=== PATIENT | male | born 1985 | race Caucasian/White ===

== ENCOUNTER 2022-01-22 13:35 | Emergency (ER) | payer BC, SELFPAY ==
[2022-01-22 13:56] VITALS: BP 127/81; PULSE 98; TEMP 36.3; O2SAT 94; BMI 24.1
--- NOTE | 2022-01-22 14:25 | ED_ITS ---
HPI - General Adult General Date Seen: 01/22/22 Chief complaint: Abdominal Pain Stated complaint: Possible Bowel Blockage Time Seen by Provider: 01/22/22 13:36 Source: patient and family History of Present Illness HPI narrative: Patient is a 36-year-old male here for evaluation of constipation. His provides much of the history as the patient seems very embarrassed by the whole thing. She says that he has not had a bowel movement for several weeks aside from 1 a week ago. He says that he used an enema on Sunday night and then had al bowel movement Sunday morning, 1 week ago. This was runny in consistency but not bloody He has not had anything since then. His says that he seemed very uncomfortable over the past day, he seemed shaky and has had a lot of abdominal cramping. That is why she wanted him to be seen today. He says that he does not feel terrible right now, but he says that he knows it is going to get bad when he tries to go to the bathroom. He had problems like this a couple of months ago, but it only lasted a week and then seemed to get better. Over the past few days, he has been using MiraLax and laxatives, but has not had any result. He otherwise has not been using MiraLax. He did have some bright red blood per rectum couple of months ago when he finally was able to go. Stools had been hard and difficult to pass at that time. He has not had any vomiting or fevers. He has a new job, he does not have easy access to bathrooms and is eating a lot more fast food. He thinks these are contributing to his difficulties. His weight has been stable. He is not otherwise noted any black or bloody stools. He notes that it is sometimes harder to maintain his urine stream than usual, but denies any dysuria, frequency, urgency. Related Data Home Medications Medication Instructions Recorded Confirmed clonidine HCl 0.1 mg tablet mg 01/22/22 lamotrigine 200 mg tablet mg 01/22/22 lithium carbonate 300 mg capsule mg 01/22/22 quetiapine 100 mg tablet mg 01/22/22 Allergies Allergy/AdvReac Type Severity Reaction Status Date / Time No Known Drug Allergies Allergy Verified 01/22/22 14:00 Review of Systems Status of ROS: Reports: 10 or more systems reviewed and unremarkable except as noted in History and below [facility] Social History Smoking Status: Current every day smoker What tobacco products do you use: cigarettes Do you use any of these nicotine containing products: None Second hand tobacco smoke exposure: No How often do you have a drink containing alcohol: 4 or more times a week How many standard drinks containing alcohol do you have on a typical day: 3 or 4 How often do you have six or more drinks on one occasion: Weekly AUDIT-C Alcohol total score: 8 Non-prescribed substance use: denies use Exam Narrative: Exam Narrative: Vital signs as noted above. In general, an alert, nontoxic male. Head: Normocephalic, atraumatic. Eyes: Pupils are equal reactive. Extraocular movements are full. Conjunctivae are normal. ENT: Mucous membranes are moist. Throat is normal. Neck: Supple without lymphadenopathy. Heart: Regular rate and rhythm. No murmur or rub. Lungs: Clear bilaterally. No increased work of breathing, crackles or wheezes. Abdomen: Soft and nondistended. Mild diffuse tenderness without rebound guarding or rigidity, slightly greater left than right. Extremities: Well perfused. No edema. No calf tenderness. Pulses intact. Neurologic: Patient is alert and oriented to person and place. Speech is fluent. Face is symmetric. Moves all extremities equally. Affect: Somewhat flat, did not look up during our conversation. Seems embarrassed. Skin: Warm and dry. Well perfused. Const: Vital Signs, click to edit/add: Vital Signs - 24 hr 01/22/22 13:56 Temperature 97.4 F L Pulse Rate [Pulse Oximeter] 98 Blood Pressure [Le ft Upper Arm] 127/81 Pulse Oximetry 94 Documenting provider has reviewed patient's vital signs: yes Course Course Hospital Course: Initially patient did not want to be evaluated here, did not want any intervention. His is concerned because he seems so uncomfortable at home. Discussed with him that we are certainly able to do an enema here to see if we can have him feeling improved before he goes home. Ultimately he decided to proceed with that. Nurse did note 250 mL of urine on bladder scan, but this was not post void. He had an Enemeez enema, did not have any result with that. Following that I did do a flat and upright x-ray of his abdomen, just to confirm that he did in fact have significant amounts of stool in the abdomen. By my review, actually do not see significant amounts of stool burden. I do not see any evidence of dilated loops of bowel, air-fluid levels, free air. Final radiology report is read as negative. I went in and discussed this with him. I did a rectal exam and he does not have any stool in the rectal vault. I have some concerns at this time given that he does not have an explanation for his symptoms. I recommended that we do some additional workup today in the form of labs and a CT scan. I wonder if he does not have either diverticulitis or colitis as an explanation. He has never had a colonoscopy given his young age, and despite that heme-negative stool here, I do think that might be something to consider as well if were not finding any other explanation. He is not interested in staying for any further evaluation. He says he is a smoker and he just wants to leave at this time. He understands that we have not found an explanation for his symptoms, and that are other things it could be going on that would require specific, definitive treatment that we are not providing. He is willing to follow up in clinic in the next couple of days. Have also explained that if he has worsening symptoms, if he has more severe pain, if he develops vomiting, fever, bloody stools or any other significant changes that he really should return to the emergency department so that we can pursue a more timely workup. Vital Signs Vital signs: Initial Vital Signs Temperature 97.4 F L 01/22/22 13:56 Temperature Source Temporal Artery Scan 01/22/22 13:56 Pulse Rate 98 01/22/22 13:56 Blood Pressure 127/81 01/22/22 13:56 Blood Pressure Mean 96 01/22/22 13:56 Blood Pressure Position Supine 01/22/22 13:56 Pulse Oximetry 94 01/22/22 13:56 Oxygen Delivery Method 01/22/22 13:56 Vital Signs Temperature 97.4 F L 01/22/22 13:56 Pulse Rate 98 01/22/22 13:56 Blood Pressure 127/81 01/22/22 13:56 Pulse Oximetry 94 01/22/22 13:56 Temperature 97.4 F L 01/22/22 13:56 Pulse Rate 98 01/22/22 13:56 Blood Pressure 127/81 01/22/22 13:56 Pulse Oximetry 94 01/22/22 13:56 Discharge Plan Discharge Clinical Impression: Abdominal pain Patient Disposition: Home, Self-Care Condition: Stable Instructions: Abdominal Pain (ED) Additional Instructions: Follow-up in clinic in the next couple of days for recheck. I do not think your symptoms are due to constipation. I think it is very important for you to follow-up so that we can get additional evaluation to determine why you have had a change in your bowel movements and her having abdominal discomfort. If at any time you have more significant pain, develop new symptoms such as fever or vomiting, bloody stools, etcetera, return to the emergency department for additional evaluation. Prescriptions: No Action clonidine HCl 0.1 mg tablet 0RF Label Comments: TAKE TWO TABLETS BY MOUTH AT BEDTIME lamotrigine 200 mg tablet 0RF Label Comments: TAKE ONE TABLET BY MOUTH EVERY DAY quetiapine 100 mg tablet 0RF Label Comments: TAKE ONE TABLET BY MOUTH AT BEDTIME WITH A 400MG TABLET lithium carbonate 300 mg capsule 0RF Label Comments: TAKE 3 CAPSULES BY MOUTH EVERY EVENING Follow Up/Referrals: Roxanne Basilio PA-C [Primary Care Provider] - Stand Alone Forms: MyHealth Info Instructions
--- NOTE | 2022-01-22 14:55 | ED.NURSE ---
Pt stated that he forgot to mention to the doctor that he has been having issues with urination, he doest feel like he his empting his bladder and he voids a small amount despite drinking a lof of water Bladder scan was done and showed about 360ml of urine in bladder. Dr Lopez updated.
[2022-01-22] MEDS: DOCUSATE SODIUM/BENZOCAINE 5 ML ENEMA PR (15:03)
--- NOTE | 2022-01-22 15:42 | CRLHL7_ITS ---
For Patients: As a result of the Century Cures Act, medical imaging exams and procedure reports are released immediately into your electronic medical record. You may view this report before your referring provider. If you have questions, please contact your health care provider. INDICATION: Abdominal pain. Constipation. COMPARISON: None available. FINDINGS: Erect and supine films of the abdomen were obtained. In the abdomen, there is no sign of distention of the small bowel or colon to suggest obstruction or ileus. There is no sign of free air or distinct mass. Fecal burden is normal. There is nothing seen to suggest constipation. The osseous structures are normal in appearance for the patient`s age. The lung bases are clear. IMPRESSION: Normal abdomen two views. Nothing seen to suggest constipation. Dictated by Preet Sky MD @ 01/22/2022 4:19:09 PM (Electronically Signed)
[2022-01-22 16:48] VITALS: BP 124/81; PULSE 94; RESP 18; O2SAT 96
== END 2022-01-22 16:53 | disposition home or self-care (01) ==
PROVIDERS: Emergency Provider Emergency Medicine; PCP Physician Assistant Medical
DX: R10.9 Unspecified abdominal pain (principal)
CPT/HCPCS: 74019; 99283; 99284; A9270

== ENCOUNTER 2022-01-27 12:49 | Outpatient (CLI) | payer BC, SELFPAY ==
[2022-01-27 13:13] LABS: Hematocrit 40.6 % (37.0-53.0); Hemoglobin* 14.6 gm/dL (13.5-17.5); Mean Corpuscular HGB Conc 36 gm/dL (32-36); Mean Corpuscular Hemoglobin 35 pg (26-34); Mean Corpuscular Volume 97 fL (80-100); Platelet Count* 275 K/uL (140-440); Red Blood Count 4.17 m/uL (4.30-5.90); White Blood Count* 16.89 K/uL (4.50-11.00)
[2022-01-27 13:14] LABS: Slide Review Reflex No
[2022-01-27 13:18] LABS: Appearance Urine Clear (Clear); Bilirubin Urine Negative (Negative); Blood Urine Trace-intact (Negative); Color Urine Yellow (Yellow); Glucose Urine Trace (Negative); Ketones Urine Negative (Negative); Leukocyte Esterase Urine Negative (Negative); Nitrite Urine Negative (Negative); Protein Urine Trace (Negative); Specific Gravity Urine 1.015 (1.000-1.030)
[2022-01-27 13:20] LABS: RBC Urine 0-2 (0-2); WBC Urine 0-2 (0-5)
[2022-01-27 21:18] LABS: Chloride* 92 mmol/L (96-114)
[2022-01-27 21:19] LABS: Albumin* 4.5 g/dL (3.3-5.0); Potassium* 3.2 mmol/L (3.6-5.1); Sodium* 133 mmol/L (135-149)
[2022-01-27 21:21] LABS: Bilirubin Total* 0.6 mg/dL (0.1-1.5); Creatinine* 0.8 mg/dL (0.5-1.5); Estimated Glomerular Filt Rate 118 ml/min
[2022-01-27 21:22] LABS: Alanine Aminotransferase* 101 U/L (4-50); Alkaline Phosphatase* 235 U/L (40-150); Aspartate Amino Transferase* 68 U/L (12-35); Blood Urea Nitrogen* 15 mg/dL (5-24); Calcium* 10.3 mg/dL (8.4-10.6); Carbon Dioxide* 33 mmol/L (20-32); Glucose* 127 mg/dL (60-115); Total Protein* 7.6 g/dL (6.0-8.3)
[2022-01-27 22:09] LABS: Vitamin B12* 646 pg/mL (243-894)
[2022-01-27 23:02] LABS: Free T4 Free Thyroxine* 0.68 ng/dL (0.70-1.85)
[2022-01-30 06:47] LABS: Vitamin D, 1,25-Dihydroxy 29.6 pg/mL (19.9-79.3)
== END 2022-01-27 12:50 | disposition home or self-care (01) ==
PROVIDERS: PCP Physician Assistant Medical; Visit Provider Physician Assistant Medical
DX: K59.00 Constipation, unspecified (principal); K92.1 Melena; I10 Essential (primary) hypertension; R25.1 Tremor, unspecified; R26.89 Other abnormalities of gait and mobility; R30.0 Dysuria; F41.9 Anxiety disorder, unspecified
CPT/HCPCS: 80053; 81003; 81015; 82607; 82652; 82728; 84439; 84443; 85027; 87086

== ENCOUNTER 2022-02-06 15:15 | Outpatient (CLI) | payer BC, SELFPAY ==
--- NOTE | 2022-02-06 15:30 | CRLHL7_ITS ---
For Patients: As a result of the Century Cures Act, medical imaging exams and procedure reports are released immediately into your electronic medical record. You may view this report before your referring provider. If you have questions, please contact your health care provider. INDICATION: Migraine headaches. COMPARISON: None. TECHNIQUE: Multiplanar T1, T2, FLAIR and diffusion-weighted imaging. FINDINGS: Normal brain parenchymal morphology and signal intensity. Subtle curvilinear T2/FLAIR signal hyperintensity in the periventricular white matter adjacent to the anterior horn of right lateral ventricle likely represents an underlying developmental venous anomaly. No intracranial hemorrhage. No abnormal ventricular dilatation. Intracranial vascular flow voids are preserved. No mass or mass effect. No midline shift. No restricted diffusion to suggest acute ischemia. Bilateral orbits are unremarkable. Normal appearing sella. Visualized paranasal sinuses and mastoid air cells are unremarkable. IMPRESSION: 1. No acute intracranial abnormality. 2. Normal brain parenchymal morphology and signal intensity. The scratch, subtle curvilinear T2 signal hyperintensity in the periventricular white matter adjacent to the anterior horn of the right lateral ventricle likely represents an underlying developmental venous anomaly Dictated by Paco Ellis MD @ 02/06/2022 4:36:52 PM (Electronically Signed)
--- NOTE | 2022-02-06 16:00 | US_ITS ---
Final Report Patient: LM MONTGOMERY Facility:?[facility] Patient ID:?[id number] Site Patient ID:?[id number]. Site :?[id number] Study:?US Abdomen/Pelvis -02/06/2022 4:33:06 PM Ordering Physician:?Tiara Dimas Final Report: INDICATION: History of urinary hesitancy COMPARISON: None available TECHNIQUE: Grayscale and color Doppler imaging of the bilateral kidneys and urinary bladder. FINDINGS: The kidneys demonstrate a symmetric appearance and smooth outer contour. There is no obvious calculus, or mass within either kidney. There is no evidence of hydroureteronephrosis bilaterally. The right kidney measures 12.1 cm in length, and the left kidney measures 11.7 cm in length. Transverse and longitudinal images demonstrates an unremarkable appearance of the urinary bladder. The bladder wall thickness is 0.3 centimeters. Prevoid bladder volume: 290 mL Postvoid bladder volume: 87 mL IMPRESSION: 1. Normal sonographic appearance of the bilateral kidneys. No evidence of hydroureteronephrosis bilaterally. 2. Normal sonographic appearance of the bladder with no significant urinary retention. Dictated by Anthony Mendoza MD @ 02/06/2022 4:50:26 PM (Electronic Signature)
== END 2022-02-06 15:16 | disposition home or self-care (01) ==
PROVIDERS: PCP Physician Assistant Medical; Visit Provider Physician Assistant Medical
DX: G43.909 Migraine, unspecified, not intractable, without status migrainosus (principal); R30.0 Dysuria
CPT/HCPCS: 70551; 76770

== ENCOUNTER 2022-02-20 09:09 | Outpatient (CLI) | payer BC, SELFPAY | END 2022-02-20 09:10 | disposition home or self-care (01) | LOC: OP CLINIC 09:10 | PROVIDERS: PCP Physician Assistant Medical; Visit Provider Surgery | DX: K59.04 Chronic idiopathic constipation (principal); K63.5 Polyp of colon | CPT/HCPCS: 45385; 88305; 99153; J2250; J3010 ==

== ENCOUNTER 2022-03-28 21:29 | Outpatient (REF) | payer BC, SELFPAY ==
[2022-03-28 21:50] LABS: Basophils Absolute Auto 0.05 K/uL (0.00-0.30); Basophils Percent Auto 0.8 % (0.0-3.0); Eosinophils Absolute Auto 0.28 K/uL (0.00-0.50); Eosinophils Percent Auto 4.2 % (0.0-7.0); Hematocrit 45.8 % (37.0-53.0); Hemoglobin* 15.7 gm/dL (13.5-17.5); Immature Granulocytes Abs Auto 0.01 K/uL (0.00-0.30); Lymphocytes Absolute Auto 1.96 K/uL (0.90-2.90); Lymphocytes Percent Auto 29.7 % (20-44); Mean Corpuscular HGB Conc 34 gm/dL (32-36); Mean Corpuscular Hemoglobin 35 pg (26-34); Mean Corpuscular Volume 103 fL (80-100); Neutrophils Absolute Auto 3.84 K/uL (1.7-7.0); Neutrophils Percent Auto 58.1 % (42.0-72.0); Platelet Count* 213 K/uL (140-440); RDW Coefficient of Variation % 12.2 % (11.5-15.5); Red Blood Count 4.46 m/uL (4.30-5.90)
[2022-03-28 21:58] LABS: Slide Review Reflex No
[2022-03-28 22:11] LABS: Albumin* 4.7 g/dL (3.3-5.0); Chloride* 104 mmol/L (96-114); Potassium* 4.2 mmol/L (3.6-5.1)
[2022-03-28 22:13] LABS: Aspartate Amino Transferase* 41 U/L (12-35); Bilirubin Total* 0.6 mg/dL (0.1-1.5); Carbon Dioxide* 27 mmol/L (20-32); Creatinine* 0.8 mg/dL (0.5-1.5); Estimated Glomerular Filt Rate 118 ml/min
[2022-03-28 22:14] LABS: Alanine Aminotransferase* 43 U/L (4-50); Alkaline Phosphatase* 74 U/L (40-150); Blood Urea Nitrogen* 5 mg/dL (5-24); Calcium* 9.6 mg/dL (8.4-10.6); Glucose* 123 mg/dL (60-115); Total Protein* 7.5 g/dL (6.0-8.3)
[2022-03-28 22:18] LABS: Sodium* 140 mmol/L (135-149)
[2022-03-28 22:31] LABS: Free T4 Free Thyroxine* 0.58 ng/dL (0.70-1.85)
[2022-03-30 13:58] LABS: Lithium, Serum or Plasma 0.6 mmol/L (0.5-1.2)
== END 2022-03-28 21:30 | disposition home or self-care (01) ==
LOC: NPINS 21:29
PROVIDERS: PCP Physician Assistant Medical
DX: F31.81 Bipolar II disorder (principal); Z79.899 Other long term (current) drug therapy
CPT/HCPCS: 80053; 80178; 84439; 84443; 85025

== ENCOUNTER 2022-08-21 13:30 | Outpatient (REF) | payer BC, SELFPAY ==
[2022-08-21 15:03] LABS: Basophils Absolute Auto 0.05 K/uL (0.00-0.30); Basophils Percent Auto 0.9 % (0.0-3.0); Eosinophils Absolute Auto 0.25 K/uL (0.00-0.50); Eosinophils Percent Auto 4.3 % (0.0-7.0); Hematocrit 46.4 % (37.0-53.0); Hemoglobin* 16.2 gm/dL (13.5-17.5); Immature Granulocytes Abs Auto 0.02 K/uL (0.00-0.30); Immature Granulocytes Pct Auto 0.3 %; Lymphocytes Absolute Auto 1.65 K/uL (0.90-2.90); Lymphocytes Percent Auto 28.1 % (20-44); Mean Corpuscular HGB Conc 35 gm/dL (32-36); Mean Corpuscular Hemoglobin 35 pg (26-34); Mean Corpuscular Volume 101 fL (80-100); Monocytes Percent Auto 8.5 % (0.0-11.0); Neutrophils Absolute Auto 3.41 K/uL (1.7-7.0); Neutrophils Percent Auto 57.9 % (42.0-72.0); Platelet Count* 204 K/uL (140-440); Red Blood Count 4.58 m/uL (4.30-5.90); White Blood Count* 5.88 K/uL (4.50-11.00)
[2022-08-21 15:07] LABS: Slide Review Reflex No
[2022-08-21 15:31] LABS: Amphetamine Screen Urine Negative (Negative); Barbiturate Screen Urine Negative (Negative); Benzodiazepines Screen Urine Negative (Negative); Cocaine Screen Urine Negative (Negative); Methadone Screen Urine Negative (Negative); Methamphetamines Screen Urine Negative (Negative); Opiate Screen Urine Negative (Negative); Oxycodone Screen Urine Negative (Negative); Phencyclidine Screen Urine Negative (Negative)
[2022-08-21 15:37] LABS: Albumin* 4.3 g/dL (3.3-5.0)
[2022-08-21 15:38] LABS: Chloride* 105 mmol/L (96-114); Potassium* 3.2 mmol/L (3.6-5.1); Sodium* 139 mmol/L (135-149)
[2022-08-21 15:39] LABS: Iron* 146 ug/dL (49-181)
[2022-08-21 15:40] LABS: Aspartate Amino Transferase* 88 U/L (12-35); Carbon Dioxide* 26 mmol/L (20-32); Cholesterol* 236 mg/dL (90-199); Creatinine* 0.7 mg/dL (0.5-1.5); Estimated Glomerular Filt Rate 123 ml/min
[2022-08-21 15:41] LABS: Alanine Aminotransferase* 114 U/L (4-50); Appearance Urine Clear (Clear); Bilirubin Urine Negative (Negative); Blood Urea Nitrogen* 5 mg/dL (5-24); Blood Urine Negative (Negative); Calcium* 9.3 mg/dL (8.4-10.6); Color Urine Yellow (Yellow); Glucose Urine Negative (Negative); Glucose* 152 mg/dL (60-115); HDL Cholesterol* 44 mg/dL (>=40); Ketones Urine Negative (Negative); LDL Cholesterol Calculated 127 mg/dL (<100); Leukocyte Esterase Urine Negative (Negative); Magnesium* 1.8 mg/dL (1.5-2.6); Nitrite Urine Negative (Negative); Protein Urine Negative (Negative); Specific Gravity Urine 1.015 (1.000-1.030); Triglycerides* 324 mg/dL (40-149); Urobilinogen Urine 0.2 (0.2-1.0)
[2022-08-21 15:42] LABS: Hemoglobin A1C* 5.13 % (0-5.6)
[2022-08-21 15:46] LABS: Cannabinoid Screen Urine POSITIVE (Negative); Tricyclic Antidepressant Urine POSITIVE (Negative)
[2022-08-21 15:58] LABS: Vitamin D 25 Hydroxy* < 13 ng/mL (30-80)
[2022-08-23 14:18] LABS: Total T3 76 ng/dL (80-200)
[2022-08-23 16:06] LABS: Lithium, Serum or Plasma 0.6 mmol/L (0.5-1.2)
== END 2022-08-21 13:31 | disposition home or self-care (01) ==
LOC: LAB 13:30
PROVIDERS: PCP Physician Assistant Medical; Visit Provider Nurse Practitioner Psychiatric/Mental Health
DX: Z00.00 Encounter for general adult medical examination without abnormal findings (principal); F31.32 Bipolar disorder, current episode depressed, moderate
CPT/HCPCS: 36415; 80048; 80061; 80178; 80306; 81003; 82040; 82306; 82607; 82728; 83036; 83540; 83735; 84439; 84443; 84450; 84460; 84480; 84630; 85025; A9270